=== PATIENT | female | born 1985 | race Two or more races ===

== ENCOUNTER 2025-09-06 22:16 | Emergency (ER) | payer SELFPAY ==
--- NOTE | 2025-09-06 22:17 | EDNOTE_ITS ---
ED Medical Clearance RME/HPI General Chief complaint: Medical Clearance Stated complaint: [facility] CLEARANCE Time Seen by Provider: 09/06/25 22:29 Arrival date/time: 09/06/25 22:16 RME / HPI RME / HPI Narrative: See [facility] for Dr. Villar's HPI documentation. Related Information Home Medications ?Medication ?Instructions ?Recorded ?Confirmed aspirin 81 mg tablet,delayed 81 mg PO QDAY 09/15/21 release labetalol 100 mg tablet 100 mg PO BID 09/15/2109/15 metformin 500 mg tablet 500 mg PO DAILY 09/15/21 Allergies Allergy/AdvReac Type Severity Reaction Status Date / Time No Known Allergies Allergy Verified 09/15/21 09:43 Review of Systems Review of Systems Systems Reviewed: All systems reviewed, normal except as documented Past Medical History Social History SMOKING STATUS: Never smoker ED Exam Narrative Physical exam: See [facility] for Dr. Villar's physical exam documentation. Course Quality Measures none Orders Category Date Time Status EKG (ED ONLY) *Do not use* NOW Care 09/06/25 22:19 Completed EKG (ED Only) Stat Exams 09/06/25 22:19 Draft Metoprolol Succinate Xl [Toprol Xl] Med 09/06/25 22:27 Discontinued 100 mg PO X1 ONE cloNIDine HCL [Catapres] Med 09/06/25 22:27 Discontinued 0.3 mg PO X1 ONE Vital Signs Vital signs: Vital Signs Temperature 98.3 F 09/06/25 22:25 Pulse Rate 99 09/06/25 22:25 Respiratory Rate 18 09/06/25 22:25 Blood Pressure 233/135 H 09/06/25 22:25 Pulse Oximetry (%) 100 09/06/25 22:25 Oxygen Delivery Method Room Air 09/06/25 22:25 Medical Clearance [facility] Narrative [facility] Narrative:: This section includes all my notes and documentations, including HPI, PE, and ED course. Daniel Villar MD HPI: 39-year-old female here for correction medical clearance due to high BP. She reports no headache or dizziness. No chest pain. No other complaints. ROS: All negative except as documented in HPI. Physical Exam: General: Alert and oriented. No acute distress when remaining still. Eyes: Conjunctivae and lids clear. PERRL. EOMI. ENT: No nasal congestion. Neck: Supple. Heart: RRR. Lungs: No respiratory distress. Good air movement. No rhonchi, wheezing, rales. Abdomen: Soft and nontender. Back: No CVA tenderness. Skin: Warm and dry. Neuro: Alert and oriented X 3. Cranial nerves II to XII grossly normal. No peripheral motor deficits. I reviewed all diagnostic test results. My interpretation of the EKG is sinus rhythm with nonspecific ST-T changes. At this point, diagnoses include: Hypertension Treatment here included: Clonidine 0.3 mg PO Metoprolol 100 mg PO Significant improvement noted. Based on my best medical judgment, made decision to medically clear the patient and no further evaluation or treatment indicated at this time. Patient u nderstands and agrees to the discharge instructions customized and printed, see below. Discharge Instructions from Dr. Villar printed for you: 1. After lowering your BP, you are medically cleared for correction. 2. See a private doctor when you are released for recheck. Ask for help with lowering your BP to prevent future heart attacks and strokes. 3. Seek immediate medical care with chest pain or with any concerns. Daniel Villar MD Patient data External records reviewed:: [facility] previous records (Per chart review, patient has no relevant previous ED visits.) Clinical information provided by:: patient and law enforcement Social determinants that could affect healthcare access:: none Patient has the following chronic illnesses:: none How is presenting disease/condition affected by chronic disease/condition?: no chronic disease Evaluation data The following diagnostics were reviewed and interpreted by me:: EKG tracing(s) (My interpretation of the EKG is: Sinus rhythm (89 bpm) with nonspecific ST-T changes. Daniel Villar MD) Lab and/or radiology exams considered but not ordered:: none Interpretation Summary: I reviewed all diagnostic test results. My interpretation of the EKG is sinus rhythm with nonspecific ST-T changes. Medications / Prescriptions Medications or Prescriptions considered but not ordered:: none Medication administrations:: Medication Administration History Discontinued Medications Clonidine (Clonidine Hcl 0.1 Mg Tablet) 0.3 mg PO X1 ONE Stop: 09/06/25 22:28 Last Admin: 09/06/25 22:45 Dose: 0.3 mg Documented By: EE Metoprolol Succinate (Metoprolol Succinate Xl 25 Mg Tabcr) 100 mg PO X1 ONE Stop: 09/06/25 22:28 Last Admin: 09/06/25 22:45 Dose: 100 mg Documented By: JAYCE Clonidine 0.3 mg Metoprolol 100 mg Consultations Consultation(s) initiated? (list below): No Diagnosis Medical Clearance Differential Diagnosis: other (uncontrolled hypertension, hypertensive urgency, drug use) Most likely diagnosis given after review of the tests above:: Hypertension Admission Indicated Admission indicated?: not indicated Explain why admission is indicated or not indicated:: With significant improvement and no condition needing emergent intervention, there was no indication for admission. Admission Request Was there a request for admission?: No Disposition Plan Disposition Plan: Discharge Discharge Attestation Discharge Attestation: The patient and all family members were given an opportunity to ask questions and understood the discharge instructions. Discharge instructions specifically effects, indications for sooner follow up or return to the emergency department, and the expected course of current diagnosis. Patient condition: Stable Discharge Plan Plan Patient Disposition: [facility]/Court/Law Prescriptions/Referrals Prescriptions/Med Rec: No Action metformin 500 mg tablet 500 mg PO DAILY aspirin [Aspir-81] 81 mg Tablet,Delayed Release (Dr/Ec) 81 mg PO QDAY labetalol 100 mg Tablet 100 mg PO BID Referrals: No Primary/Family,Physician [Primary Care Provider] - In 1 week Problem List Clinical Impression: Hypertension Patient/Caregiver Discharge Instructions Education Materials: ED Hypertension, Established Additional Instructions: Discharge Instructions from Dr. Villar printed for you: 1. After lowering your BP, you are medically cleared for correction. 2. See a private doctor when you are released for recheck. Ask for help with lowering your BP to prevent future heart attacks and strokes. 3. Seek immediate medical care with chest pain or with any concerns. Print Language: [place]
--- NOTE | 2025-09-06 22:19 | EKG_ITS ---
[facility] Test Date: 2025-09-06 Pat Name: SHARIF KASPER Department: Room: - Gender: Female Department [employer]: : 1985 Requested By: Daniel Blackwell Order Number: [id number] Reading MD: Daniel Blackwell Measurements Intervals [place] Rate: 89 P: 31 AK: 156 QRS: 1 QRSD: 89 T: 76 QT: 374 QTc: 456 Interpretive Statements SINUS RHYTHM VOLTAGE CRITERIA FOR LVH [MEETS CRITERIA IN ONE OF: R(aVL), S(V1), R(V5), R(V5/V6)+S(V1)] NONSPECIFIC T-WAVE ABNORMALITY No previous ECG available for comparison /store/S0/[id number].pdf
[2025-09-06 22:25] VITALS: BP 220/132; BP 233/135; PULSE 99; RESP 18; TEMP 36.8; O2SAT 100; BMI 30.7
[2025-09-06 22:45] VITALS: BP 233/135; PULSE 99
[2025-09-06] MEDS: METOPROLOL SUCCINATE XL 25 MG TABCR 100 MG PO (22:45)
[2025-09-06 23:13] VITALS: BP 199/108; BP 221/144; PULSE 85; RESP 16; O2SAT 99
[2025-09-06 23:36] VITALS: BP 181/121; PULSE 86; O2SAT 100
[2025-09-06 23:53] VITALS: BP 162/104
[2025-09-07 00:20] VITALS: BP 143/89; PULSE 75; RESP 16; TEMP 36.7; O2SAT 100
== END 2025-09-07 00:22 ==
PROVIDERS: Emergency Provider Emergency Medicine
DX: I10 Essential (primary) hypertension (principal)
CPT/HCPCS: 93005; 99283; A9270